=== PATIENT | female | born 1990 | race Caucasian/White ===

== ENCOUNTER 2025-01-26 18:38 | Outpatient (REF) | payer OTHER, SELFPAY ==
--- OUTSIDE RECORDS SUMMARY | 2025-01-26 15:00 | XMS_ITS | Encounter Summary ---
Author Organization [facility] Address [address] [facility] [place] [address] Care Team Providers Care Senior Computer Specialist Name Role Phone Unavailable Primary Care Provider Unavailabl e Reason for Visit * ReasonCommentsGynecologic Exam Encounter Details DateTypeDepartmentCare Team (Latest Contact Info)Ruixuemqrds30/16/2025 3:00 PM ESTProcedure Visit [facility] SANTOS [address] [place] [address] Blessing Fox PA [address] [facility] [address] [place], [place] [address] Well woman exam with routine gynecological exam; Hemorrhoids, unspecified hemorrhoid type Social History Tobacco UseTypesPacks/DayYears UsedDateSmoking Tobacco: Never Assessed CommentsNoSex and Gender InformationValueDate RecordedSex Assigned at BirthNot on fileLegal NejYyvkgf91/15/2023 8:25 PM EDTGender IdentityNot on fileSexual OrientationNot on filedocumented as of this encounter Last Filed Vital Signs Vital SignReadingTime TakenCommentsBlood Ashjjyij522/6201/26/2025 2:59 PM EST Pulse--Temperature--Respiratory Rate--Oxygen Saturation--Inhaled Oxygen Concentration--Abpqfh06.8 kg (134 lb)01/26/2025 2:59 PM ESTHeight--Body Mass Index21.6301/29/2022 12:00 PM ESTdocumented in this encounter Progress Notes * AYANA Rodriguez - 01/26/2025 3:00 PM EST Reason for Appointment: Patient ID: Melany Rene is a 34 y.o. female who presents for Gynecologic Exam Patient presents today for Annual Exam. MEDICATIONS Current Outpatient Medications Medication Instructions buPROPion XL (WELLBUTRIN XL) 150 mg, Every morning busPIRone (BUSPAR) 5 mg, 2 times daily ALLERGIES Allergies Allergen Reactions Hydrocodone-Acetaminophen Penicillin V Other Reaction(s): Unknown Penicillins Other Reaction(s): Rash Other Reaction(s): hives PROBLEMS Active Ambulatory Problems Diagnosis Date Noted No Active Ambulatory Problems Resolved Ambulatory Problems Diagnosis Date Noted No Resolved Ambulatory Problems No Additional Past Medical History HISTORY PAST MEDICAL HISTORY SOCIAL HISTORY No past medical history on file. Social History Tobacco Use Smoking status: Not on file Smokeless tobacco: Not on file Substance Use Topics Alcohol use: Not on file Drug use: Not on file FAMILY HISTORY Family History Problem Relation Name Age of Onset Breast cancer Paternal Grandfather SURGICAL HISTORY No past surgical history on file. REVIEW OF SYSTEMS Review of Systems: Review of Systems All other systems reviewed and are negative. OBJECTIVE Objective: Physical Exam Constitutional: Appearance: Normal appearance. She is well-developed. Genitourinary: Vulva normal. Cardiovascular: Rate and Rhythm: Normal rate and regular rhythm. Pulmonary: Effort: Pulmonary effort is normal. Breath sounds: Normal breath sounds. Abdominal: General: Bowel sounds are normal. There is no distension. Palpations: Abdomen is soft. Tenderness: There is no abdominal tenderness. There is no guarding or rebound. Musculoskeletal: General: No swelling. Normal range of motion. Right lower leg: No edema. Left lower leg: No edema. Neurological: Mental Status: She is alert and oriented to person, place, and time. Skin: General: Skin is warm and dry. Psychiatric: Mood and Affect: Mood normal. Behavior: Behavior normal. Vitals and nursing note reviewed. Exam conducted with a registered nurses present. Vitals: Estimated body mass index is 24.02 kg/m?? as calculated from the following: Height as of 01/29/22: 5' 6 . Weight as of 08/12/24: 148 lb 12.8 oz. BP: No LMP recorded. Assessment/Plan ICD-10-CM 1. Well woman exam with routine gynecological exam Z01.419 Pap Smear HPV DNA probe, amplified Assessment/Plan Annual Exam: Patient presents today for an annual exam. Patient states she is doing well and has no complaints. Pap was obtained without difficulty. Pt complains of hemorrhoids and Blessing Fox prescribed suppositories to begin taking to help w/relief of the hemorrhoids. And Pt complains of her labia's to long and uncomfortable w/underwear. Dr. Howard did come into the room to exam patient and advise if she wouldneed surgery to repair. Pt decided to wait and see and advise in the future. Patient has a repeat mammogram noted for 04/07 due to abnormality in the right. She has scheduled through mammograpy Orders Placed This Encounter Procedures HPV DNA probe, amplified Follow Up: Patient is to return in one year for annual unless needed otherwise. Documented by Cally Frey MA on behalf of: AYANA Rodriguez documented in this encounter Plan of Treatment DateTypeDepartmentCare Team (Latest Contact Info)Rcufvqmaegw52/16/2026 1:15 PM EDTOffice Visit [facility] [address] [address] Tate Subramanian, [address] [facility] [address] [place] [address] 02/15/2026 10:00 AM ESTProcedure Visit [facility] Ann SANTOS [address] [place] [address] Blessing Fox PA [address] [facility] [place] [place] [address] NameTypePriorityAssociated DiagnosesOrder SchedulePap SmearPathology and CytologyRoutine Well woman exam with routine gynecological exam Ordered: 01/26/2025HPV DNA probe, amplifiedMicrobiologyRoutine Well woman exam with routine gynecological exam Ordered: 01/26/2025documented as of this encounter Visit Diagnoses Diagnosis Well woman exam with routine gynecological exam Routine gynecological examination Hemorrhoids, unspecified hemorrhoid type documented in this encounter
--- OUTSIDE RECORDS SUMMARY | 2025-01-26 18:43 | XMS_ITS | Clinical Summary ---
Author Organization [facility] Address [address], [address] [place] [address] Care Team Providers Care Carbon Paste Mixer Operator Name Role Phone Jm Selby MD Primary Care Provider [phone] Allergies Active AllergyReactionsCriticalityNoted DateCommentsHydrocodone-Acetaminophen 08/28/20160418Dodtassjmvs88/17/2020Penicillin G003/01/1996 Medications MedicationSigDispense QuantityRefillsLast FilledStart DateEnd DateStatus sertraline (ZOLOFT) 50 MG tablet Take 1 tablet by mouth daily 90 tablet Active medical marijuana Take 1 each by mouth as needed.Active Family History Medical HistoryRelationNameCommentsNo Known ProblemsBrotherNo Known Problems Maternal GrandfatherNo Known ProblemsMaternal GrandmotherThyroid CancerMother Breast CancerPaternal GrandfatherNo Known ProblemsPaternal GrandmotherNo Known ProblemsSisterRelationNameStatusCommentsBrotherAliveFatherAliveMaternal GrandfatherDeceasedMaternal GrandmotherDeceasedMotherAlivePaternal Grandfather DeceasedPaternal GrandmotherDeceasedSisterAlive Social History Tobacco UseTypesPacks/DayYears UsedDateSmoking Tobacco: NeverSmokeless Tobacco: NeverAlcohol UseStandard Drinks/WeekCommentsNot Currently0 (1 standard drink = 0.6 oz pure alcohol)CommentsNoSex and Gender InformationValueDate RecordedSex Assigned at BirthNot on fileLegal XliZgdicl58/29/2020 8:50 AM EST Gender IdentityNot on fileSexual OrientationNot on file Last Filed Vital Signs Vital SignReadingTime TakenCommentsBlood Pxsddbfu046/8201/01/2022 2:22 PM EST Kekky96484/12/2022 2:22 PM JKWMyqjsiwuvtp55.3 ??C (101 ??F)02/22/2021 2:22 PM ESTRespiratory Aukp296002/22/2021 2:22 PM ESTOxygen Zqpbxlopyg97%02/22/2021 2:22 PM ESTInhaled Oxygen Concentration--Frjysb83.2 kg (168 lb)02/22/2021 2:22 PM EST Heszaj700.6 cm (5' 6 )03/30/2019 11:46 AM ESTBody Mass Index27.12003/30/2019 11:46 AM EST Plan of Treatment Not on file Insurance * Guarantor: Melany Rene TypeRelation to PatientDate of BirthPhone Billing AddressPersonal/HbsfqdDadu10[birth year][address] [place] [address] MemberSubscriberPlan / Payer (Effective 2014-Present)Name:Melany Rene Relation to Subscriber:SelfName:Melany Rene Payer ID:Not on file Type:Not on file Address: [address] [address] Care Teams Team MemberRelationshipSpecialtyStart DateEnd Jm Selby MD [address] [place] [address] PCP - GeneralFamily Medicine03/30/19
--- OUTSIDE RECORDS SUMMARY | 2025-01-26 18:43 | XMS_ITS | Encounter Summary ---
Author Organization [employer] s [employer] Address [id number] [address] [place] [address] Care Team Providers Care Test Kitchen Home Economist Name Role Phone Blue See PA-C Primary Care Provider Encounter Details DateTypeDepartmentCare Team (Latest Contact Info)Lqacdjysovd06/11/2025Travel Social History Tobacco UseTypesPacks/DayYears UsedDateSmoking Tobacco: NeverSmokeless Tobacco: NeverAlcohol UseStandard Drinks/WeekCommentsYes2 (1 standard drink = 0.6 oz pure alcohol)Overall Financial Resource Strain (CARDIA)AnswerDate RecordedHow hard is it for you to pay for the very basics like food, housing, medical care, and heating?Not very hard03/01/2024PRAPARE - TransportationAnswerDate RecordedIn the past 12 months, has lack of transportation kept you from medical appointments or from getting medications?No03/01/2024In the past 12 months, has lack of transportation kept you from meetings, work, or from getting things needed for daily living?No03/01/2024Housing InstabilityAnswerDate RecordedAre you worried or concerned that in the next two months you may not have stable housing that you own, rent or stay in as a part of a household?No03/01/2024hildcareAnswer Date IspgngbsEmmqosffvMemfjlh35/07/2019EmploymentAnswerDate RecordedEmployment Evihctr5209/17/2018Hunger ScreeningAnswerDate RecordedWithin the past 12 months we worried whether our food would run out before we got money to buy more.Never True03/01/2024Within the past 12 months the food we bought just didn't last and we didn't have money to get more.Never True03/01/2024Purpose - LifeAnswerDate RecordedPurpose and direction in zotzIphyfyj28/11/2021CommentsUnknownSex and Gender InformationValueDate RecordedSex Assigned at BirthNot on fileLegal PwxNbubta49/07/2019 6:41 AM EDTGender IdentityNot on fileSexual OrientationNot on filedocumented as of this encounter Plan of Treatment Not on file documented as of this encounter Visit Diagnoses Not on filedocumented in this encounter Care Teams Team MemberRelationshipSpecialtyStart DateEnd Date Blue See, [facility] [address] [place] [address] PCP - GeneralPhysician Assistant03/02/24documented as of this encounter
--- OUTSIDE RECORDS SUMMARY | 2025-01-26 18:43 | XMS_ITS | Clinical Summary ---
Author Organization [facility] Address [address] [place] [address] Care Team Providers Care Yarn Handler Name Role Phone Unavailable Primary Care Provider Unavailabl e Allergies Active AllergyReactionsCriticalityNoted DateCommentsHydrocodone-Acetaminophen 08/28/2016Penicillin V010/28/2023 Other Reaction(s): Unknown Lfpmykmbxpx60/19/1997 Other Reaction(s): Rash Other Reaction(s): hives Medications MedicationSigDispense QuantityRefillsLast FilledStart DateEnd DateStatus buPROPion XL (Wellbutrin XL) 150 MG 24 hr tablet Take 150 mg by mouth in the morning.5Active busPIRone (Buspar) 5 MG tablet Take 5 mg by mouth in the morning and 5 mg in the evening.5Active hydrocortisone (Anusol-HC) 25 MG suppository Indications:Hemorrhoids, unspecified hemorrhoid typeInsert 1 suppository (25 mg) into the rectum in the morning and 1 suppository (25 mg) before bedtime. Do all this for 10 days. 20 suppository /5Active hydrocortisone (Anusol-HC) 25 MG suppository Indications:Hemorrhoids, unspecified hemorrhoid typeInsert 1 suppository (25 mg) into the rectum in the morning and 1 suppository (25 mg) before bedtime. Do all this for 10 days. 12 suppository Discontinued Encounters DateTypeDepartmentCare LyyxFyqdgpovgqc07/16/2025 3:00 PM ESTProcedure Visit [facility] Mary Ann SANTOS [address] [place] [address] Blessing Fox PA Well woman exam with routine gynecological exam; Hemorrhoids, unspecified hemorrhoid type01/26/2025Refill [facility] Mary Ann SANTOS [address] [place] [address] Blessing Fox PA Hemorrhoids, unspecified hemorrhoid type01/26/2025amboo flowsheet [facility] Mary Ann SANTOS [address] [place] [address] Blessing Fox PA 01/25/2025Travelfrom Last 3 Months Family History Medical HistoryRelationNameCommentsBreast cancerPaternal GrandfatherRelationName StatusCommentsPaternal Grandfather Social History Tobacco UseTypesPacks/DayYears UsedDateSmoking Tobacco: Never Assessed CommentsNoSex and Gender InformationValueDate RecordedSex Assigned at BirthNot on fileLegal JkpXjflxm07/15/2023 8:25 PM EDTGender IdentityNot on fileSexual OrientationNot on file Last Filed Vital Signs Vital SignReadingTime TakenCommentsBlood Rtxpzxwd745/6201/26/2025 2:59 PM EST Pulse--Temperature--Respiratory Rate--Oxygen Saturation--Inhaled Oxygen Concentration--Lrottj09.8 kg (134 lb)01/26/2025 2:59 PM PLHNncspc770.6 cm (5' 6 )01/29/2022 12:00 PM ESTBody Mass Index21.6301/29/2022 12:00 PM EST Plan of Treatment DateTypeDepartmentCare Team (Latest Contact Info)Rnvqwlxaiam93/16/2026 1:15 PM EDTOffice Visit [facility] [address] [facility] [address] [place] [address] Tate Subramanian DO [address] [facility] [address] [place] [address] 02/15/2026 10:00 AM ESTProcedure Visit [facility]Abd[facility] [place] [address] Blessing Fox PA [address] [facility] [place] [address] Health MaintenanceDue DateLast DoneCommentsPneumococcal Vaccine: Pediatrics (0 to 5 Years) and At-Risk Patients (6 to 64 Years) (1 of 2 - PCV)12/28/2010 HPV/Amjtct892Cervical Cancer Pisvreiln25/17/2023Pap Smear03/30/2022 03/30/2019COVID-19 Vaccine (1 - 2024- season)2024Influenza Vaccine (#1) 2024 Insurance * Guarantor: Melany Vaughan TypeRelation to PatientDate of BirthPhone Billing AddressPersonal/DucstpIlvm85/17/1991 [address] [place] [address]
--- OUTSIDE RECORDS SUMMARY | 2025-01-26 18:43 | XMS_ITS | Encounter Summary ---
Author Organization [facility] Address [address] [place] [address] Care Team Providers Care Contract Mail Carrier Name Role Phone Unavailable Primary Care Provider Unavailabl e Encounter Details DateTypeDepartmentCare Team (Latest Contact Info)Ndcwtgertuf32/16/2025amboo flowsheet [facility] Mary Ann SANTOS [address] [facility] [place] [address] Blessing Fox PA [address] [facility] [address] [place], [facility] Social History Tobacco UseTypesPacks/DayYears UsedDateSmoking Tobacco: Never Assessed CommentsNoSex and Gender InformationValueDate RecordedSex Assigned at BirthNot on fileLegal UngTzwmgd08/15/2023 8:25 PM EDTGender IdentityNot on fileSexual OrientationNot on filedocumented as of this encounter Plan of Treatment DateTypeDepartmentCare Team (Latest Contact Info)Wfxskknhmyz55/16/2026 1:15 PM EDTOffice Visit [facility] [address] [phone] aTte Subramanian DO [address] [facility] [address] [place] [address] 02/15/2026 10:00 AM ESTProcedure Visit [facility] Mary Ann SANTOS [address] [facility] [place] [address] Blessing Fox, PA [address] [place] [address] [place] [address] documented as of this encounter Visit Diagnoses Not on filedocumented in this encounter
--- OUTSIDE RECORDS SUMMARY | 2025-01-26 18:43 | XMS_ITS | Patient Health Record ---
Author Organization [facility] [place] Address [address] [place] [address] Care Team Providers Care Rheologist Name Role Phone Jaleel Selby Primary Care Provider Allergies Allergen (clinical drug ingredient) Drug/Non Drug Allergy documented on EMR Reaction Allergy Type Onset Date Status PenicillinhivesDrug AllergyActive Results Component Value Reference Range Notes CBC AUTO DIFF Reviewed date:02/07/2024 05:37:00 PM Interpretation: Performing Lab: Notes/Report: [facility] , White Blood Count 5.9 4.0-11.0 10 3/uL Red Blood Count4.574.20-5.40 10 6/lGFqrbaxgfma42.112.0-16.0 g/jBCpdihaourj94.6 36.0-48.0 %Mean Corpuscular Iyhldn72.081.0-99.0 fLMean Corpuscular Hemoglobin 30.926.7-34.0 pgMean Corpuscular HGB Conc33.929.9-35.2 g/dLRed Cell Distribution Width12.011.0-15.0 %Platelet Fswmb788366-264 10 3/uLMean Platelet Volume9.59.5- 13.5 fLNeutrophils Percent Auto63.943.0-75.0 %Lymphocytes Percent Auto27.020.5- 60.0 %Monocytes Percent Auto6.71.7-12.0 %Eosinophils Percent Auto1.50.9-7.0 % Basophils Percent Auto0.70.2-2.0 %Immature Granulocytes Pct Auto0.20.0-0.5 % Neutrophils Absolute Auto3.81.4-6.5 10 3/uLLymphocytes Absolute Auto1.61.2-3.8 10 3/uLMonocytes Absolute Auto0.40.3-0.8 10 3/uLEosinophils Absolute Auto0.10.0- 0.7 10 3/uLBasophils Absolute Auto0.00.0-0.1 10 3/uLImmature Granulocytes Abs Auto0.010.00-0.03 10 3/uLNucleated Red Blood Jddlv2Eplykkozvy Lab:see noteML - [facility] LBDAT CMP Reviewed date:02/07/2024 05:37:00 PM Interpretation: Performing Lab: Notes/Report: [facility] ,Yqcjsn464398-897 mmol/LPotassium4.23.5-5.1 mmol/HWoicyoso63693-727 mmol/LCarbon Jjsuizo01.921.0-32.0 mmol/LAnion Gap12.1Klrdksq9902-732 mg/dLBlood Urea Nitrogen 9.07.0-18.0 mg/dLCreatinine0.770.55-1.02 mg/dLEstimated GFR ( Yadira>60 >=60 mL/min/1.73m 2Estimated GFR (Non- Mary>60>=60 mL/min/1.73m 2BUN Creatinine Ratio11.1Xiyapke6.68.5-10.1 mg/dLBilirubin Total0.50.2-1.0 mg/dL Aspartate Amino Qnskanpdbit1255-63 U/LAlanine Poctwzcgwjzuoqmv8466-78 U/L Alkaline Vwqibcicdip7036-482 U/LTotal Protein7.76.4-8.2 g/dLAlbumin Level3.63.4- 5.0 g/dLGlobulin4.1Albumin Globulin Ratio0.9Performing Lab:see noteML - [facility] LBLipid Panel Reviewed date:02/07/2024 05:37:00 PM Interpretation: Performing Lab: Notes/Report: [facility] ,Jvzxplkapfbut54<=150 mg/jKXkiahqgfncy795<=200 mg/dLHDL Alvlguppiff9194-61 mg/dL > or =60 mg/dl - LOW CARDIOVASCULAR RISK <40 mg/dl - HIGH CARDIOVASCULAR RISK LDL Cholesterol Czpzmwohto067.0 <100 mg/dl OPTIMAL 100-129 mg/dl NEAR OR ABOVE OPTIMAL 130-159 mg/dl BORDERLINE HIGH 160-189 mg/dl HIGH >190 mg/dl VERY HIGH VLDL SHDRQZAIIIE67.8Chol HDL Ratio2.8 3.3 - 4.4 LOW RISK 4.4 - 7.1 AVERAGE RISK 7.1 - 11.0 MODERATE RISK >11.0 HIGH RISK Performing Lab:see noteML - [facility] LBDAT - TSH Reviewed date:02/07/2024 05:37:00 PM Interpretation: Performing Lab: Notes/Report: [facility] ,Thyroid Stimulating Hormone2.5090.358-3.740 uIU/mLPerforming Lab:see noteML - [facility] LB Reason For Referral No Information Medications Medication SIG (Take, Route, Frequency, Duration) Notes Start Date End Date Status Ondansetron 4 MG 1 tablet on the tong ue and allow to dissolve Orally qid; Duration: 5 days 02/03/2024ctiveMeclizine HCl 25 MG1 tablet as needed Orally Q 6 hours02/03/2024 ActiveSertraline HCl 50 MGTAKE 1/2 TABLET BY MOUTH DAILY Orally Once a day; Duration: 90 daysActive Social History Tobacco Use: Social History Observation Description Date Details (start date - stop date) Never Smoker NA - NA Tobacco Control (Standard) Question Answer Notes Tobacco use: Nonsmoker AUDIT-C (Standard) Question Answer Notes Did you have a drink containing alcohol in the p ast year? No Lysjdv4NxjdhjbekgvwytJbgxtwqh Problems Problem Type SNOMED Code ICD Code Onset Dates Problem Status W/U Status Risk Notes Problem Asthma (073099306) Asthma (J45.909) ActiveconfirmedProblemAnxiety (89479712)Anxiety (F41.9)ActiveconfirmedProblem Vertigo (620287284)Vertigo (R42)ActiveconfirmedProblemSeasonal allergic rhinitis (396229342)Seasonal allergic rhinitis (J30.2)ActiveconfirmedProblemDepression (593518102)Depression (F32.A)Activeconfirmed Vital Signs Blood pressure diastolic 60 mm Hg 02/03/2024 Hrzcpi42 in02/03/2024lood pressure shivupso667 mm Hg02/03/20246546Enfuef860 lbs 02/03/2024BMI25.98 kg/m202/03/2024 Encounters Encounter Location Date Provider Diagnosis [facility] [address] [place] [address] 02/03/2024 Jaleel Zakkamran Vertigo R42 [facility] [address] [place] [address] 02/07/2024 Jaleel Selby Assessments Encounter Date Diagnosis (ICD Code) Assessment Notes Treatment Notes Treatment Clinical Notes Section Notes 02/03/2024 Vertigo (ICD-10 - R42) Plan Of Treatment Pending Test Test Name Order Date CMP - Comprehensive Metabolic Panel 11/11 CBC W/AUTO DIFF 11/29/2022 GLYCOHEMOGLOBIN A1C 11/29/2022 LIPID PROFILE 11/29/2022 THYROID PANEL (T4/TSH/FREE T3) 3 Medical (General) History Medical History History ICD Code Asthma J45.909 Seasonal allergic rhinitis J30.2
--- OUTSIDE RECORDS SUMMARY | 2025-01-26 18:43 | XMS_ITS | Encounter Summary ---
Author Organization [facility] Address [address] [place] [address] Care Team Providers Care Pharmacist Aide Name Role Phone Unavailable Primary Care Provider Unavailabl e Reason for Visit * ReasonCommentsMed Change Request Encounter Details DateTypeDepartmentCare Team (Latest Contact Info)Yfovamfmrmu24/16/2025Refill [facility] Mary Ann OBGYDayne [address] [facility] [place] [address] Blessing Fox PA [address] [facility] [address] [place], [facility] Hemorrhoids, unspecified hemorrhoid type Social History Tobacco UseTypesPacks/DayYears UsedDateSmoking Tobacco: Never Assessed CommentsNoSex and Gender InformationValueDate RecordedSex Assigned at BirthNot on fileLegal GvnXoznuq44/15/2023 8:25 PM EDTGender IdentityNot on fileSexual OrientationNot on filedocumented as of this encounter Miscellaneous Notes * Telephone Encounter - Donna Cruz LPN - 01/26/2025 4:10 PM EST Received fax for clarification on medication. New script sent at this time. documented in this encounter Plan of Treatment DateTypeDepartmentCare Team (Latest Contact Info)Nsbqwzgeuls06/16/2026 1:15 PM EDTOffice Visit [facility] [address] [facility] [address] [place] [phone] Tate Subramanian, DO [address] [address] [place] [address] 02/15/2026 10:00 AM ESTProcedure Visit [facility] Mary Ann SANTOS [address] [facility] [place] [phone] Blessing Fox PA [address] [facility] [address] [place], [place] [phone] documented as of this encounter Visit Diagnoses Diagnosis Hemorrhoids, unspecified hemorrhoid type documented in this encounter
--- OUTSIDE RECORDS SUMMARY | 2025-01-26 18:43 | XMS_ITS | Clinical Summary ---
[facility] Address [id number] [address] [place] [address] Care Team Providers Care Cotton Feeder Name Role Phone Blue See PA-C Primary Care Provider Allergies Active AllergyReactionsCriticalityNoted EjyrCzvmocmgMrlfeipavzi45/07/2019 Medications MedicationSigDispense QuantityRefillsLast FilledStart DateEnd DateStatus buPROPion XL (WELLBUTRIN XL) 150 mg 24 hr tablet Indications:Generalized anxiety disorder,Stress at workTake 1 tablet (150 mg total) by mouth every morning. 30 tablet 5Active busPIRone (BUSPAR) 7.5 mg tablet Take 1 tablet (7.5 mg total) by mouth in the morning and at bedtime. 60 tablet 5Active Active Problems ProblemNoted DateDiagnosed DateMild njahypxwtx42/02/2025GAD (generalized anxiety disorder)07/13/2024 Encounters DateTypeDepartmentCare EwtwHnuqbcwiglp20/11/9157Blbalb52/19/2025Orders Only [facility] - [address] [facility] [id number] Blue See PA-C Generalized anxiety disorder; Stress at workfrom Last 3 Months Immunizations ImmunizationAdministration DatesNext AyvTCS72,03/19/1994DTaP, Oaghlpontgo56/13/1993Hep B, Adolescent or Wadegvvng85/03/1997,03/19/1994, 1991HiB02/14/1996,11/26/1995,03/19/1994MMR08/18/2004,03/19/1994OPV 02/14/1996,11/26/1995,03/19/1994Tdap07/05/2015 Family History Medical HistoryRelationNameCommentsThyroid cancerMotherRelationNameStatus CommentsMother Social History Tobacco UseTypesPacks/DayYears UsedDateSmoking Tobacco: NeverSmokeless [...] as a part of a household?No03/01/2024hildcareAnswer Date YwjfzelyRgelofrzwQaxspva56/07/2019EmploymentAnswerDate RecordedEmployment Msyjkrq0009/17/2018Hunger ScreeningAnswerDate RecordedWithin the past 12 months we worried whether our food would run out before we got money to buy more.Never True03/01/2024Within the past 12 months the food we bought just didn't last and we didn't have money to get more.Never True03/01/2024Purpose - LifeAnswerDate RecordedPurpose and direction in gozoWonhxnk85/11/2021CommentsUnknownSex and Gender InformationValueDate RecordedSex Assigned at BirthNot on fileLegal DfwFunakn57/07/2019 6:41 AM EDTGender IdentityNot on fileSexual OrientationNot on file Last Filed Vital Signs Vital SignReadingTime TakenCommentsBlood Lbaegawy317/8606/03/2024 10:16 AM EDT Kfhtn017707/13/2024 10:16 AM APFKwrrhfrgvcs33.7 ??C (98.1 ??F)07/13/2024 10:16 AM EDTRespiratory Ypos5545 6:48 AM EDTOxygen Olunjcwtpd53%07/13/2024 10:16 AM EDTInhaled Oxygen Concentration--Jmsvrl28.9 kg (152 lb)07/13/2024 10:16 AM NFOIuishm831.6 cm (5' 6 )07/13/2024 10:16 AM EDTBody Mass Index24.53007/13/2024 10:16 AM EDT Plan of Treatment Health MaintenanceDue DateLast DoneCommentsDepression Tcsfyvqcw52/17/2004Pap Smear12/28/2012Influenza Nywiobd2910/12/2024DTaP,Tdap and Td Vaccines (5 - Td or Tdap), 11/26/1995, 03/19/1994, Additional history exists Adult BMI Xctvjeczj80Tobacco Bluggmxry99 Medical Devices Not on file Insurance * Guarantor: Melany Vaughan TypeRelation to PatientDate of PhoneBilling AddressPersonal/JrkunrSscd39/17/1991 [address] [place] [address] MemberSubscriberPlan / Payer (Effective 2024-Present)Name:Melany Vaughan Relation to Subscriber:SpouseName:ROBI VAUGHAN Date of :1990 Address: [address] [place] [address] Payer ID:Not on file Type:Not on file Address: [place] [phone] Care Teams Team MemberRelationshipSpecialtyStart DateEnd Date Blue See PA-C [address] [place] [address] PCP - GeneralPhysician Assistant03/02/24
--- OUTSIDE RECORDS SUMMARY | 2025-01-26 18:43 | XMS_ITS | Encounter Summary ---
Author Organization [facility] Address [address] [place] [address] Care Team Providers Care Young Adult Librarian Name Role Phone Unavailable Primary Care Provider Unavailabl e Encounter Details DateTypeDepartmentCare Team (Latest Contact Info)Xsekkuzbmnw66/15/2025Travel Social History Tobacco UseTypesPacks/DayYears UsedDateSmoking Tobacco: Never Assessed CommentsUnknownSex and Gender InformationValueDate RecordedSex Assigned at Not on fileLegal SrbUifngy29/15/2023 8:25 PM EDTGender IdentityNot on fileSexual OrientationNot on filedocumented as of this encounter Plan of Treatment DateTypeDepartmentCare Team (Latest Contact Info)Irobwplvjiw86/16/2026 1:15 PM EDTOffice Visit [facility] [address] [phone] Tate Subramanian, DO [address] [address] 02/15/2026 10:00 AM ESTProcedure Visit [facility] [address] [place] [address] Blessing Fox PA [address] [place] [address] documented as of this encounter Visit Diagnoses Not on filedocumented in this encounter
== END 2025-01-26 18:39 | disposition home or self-care (01) ==
LOC: LAB 18:38
PROVIDERS: PCP Family Medicine; Visit Provider Physician Assistant
DX: Z01.419 Encounter for gynecological examination (general) (routine) without abnormal findings (principal)
CPT/HCPCS: 88175